=== PATIENT | male | born 1990 | race African-American/Black ===

== ENCOUNTER 2016-04-30 16:59 | Emergency (ER) | payer SELFPAY ==
[2016-04-30 17:12] VITALS: BP 138/79; PULSE 96; RESP 16; TEMP 98.8; O2SAT 95
--- NOTE | 2016-04-30 17:18 | EDPHY ---
H & P Smoking Status: Current every day smoker Time Seen by Provider: 04/30/16 17:05 HPI/ROS: CHIEF COMPLAINT: methamphetamine abuse HISTORY OF PRESENT ILLNESS: 25-year-old homeless male presents to the emergency department feeling very anxious after using methamphetamines. The patient states he last smoked methamphetamines yesterday. He developed cramping sensation in his left foot and felt like he was having difficulty walking. This is now completely resolved. He denies pain in his chest or difficulty breathing. Denies headache. Denies any reported trauma. REVIEW OF SYSTEMS: Constitutional: No fever, no chills. Eyes: No double or blurry vision. ENT: No sore throat. Respiratory: No cough, no shortness of breath. Cardiac: No chest pain. Gastrointestinal: No abdominal pain, vomiting or diarrhea. Genitourinary: No dysuria. Musculoskeletal: No neck or back pain. Skin: No rashes. Neurological: No headache. (RandallIvone Reginald) Past Medical/Surgical History: Methamphetamine abuse, anxiety, depression (RandallIvone) Social History: Homeless (Indira Pereirarina Reginald) Physical Exam: General Appearance: Alert, no distress. Normal gait. Eyes: Pupils equal and round. Extraocular motions are all intact. ENT: Mouth: Mucous membranes moist. Respiratory: No wheezing, rhonchi, or rales, lungs are clear to auscultation. Cardiovascular: Regular rate and rhythm. Gastrointestinal: Abdomen is soft and nontender, no masses, no rebound or guarding, bowel sounds normal. Neurological: Alert and oriented x 3, cranial nerves II through XII grossly intact Skin: Warm and dry, no rashes. Musculoskeletal: Nontender to palpate along the cervical, thoracic or lumbar spine. Neck is supple. Extremities: Full range of motion and no peripheral edema. Psychiatric: Patient is oriented X 3, there is no agitation. (Ivone Pereira) Constitutional: Initial Vital Signs Temperature (C) 37.1 C 04/30/16 17:09 Heart Rate 96 04/30/16 17:09 Respiratory Rate 16 04/30/16 17:09 Blood Pressure 138/79 H 04/30/16 17:09 O2 Sat (%) 95 04/30/16 17:09 O2 Delivery Mode Room Air Allergies/Adverse Reactions: No Known Allergies Allergy (Unverified 04/30/16 17:09) Home Medications: Medication Instructions Recorded NK [No Known Home Meds] 04/30/16 Medical Decision Making ED Course/Re-evaluation: 25-year-old homeless male presents feeling anxious after using methamphetamines yesterday. The patient was also concerned because he developed cramping sensation in his left foot. He has a normal examination. He ambulates unassisted. He will be discharged to the [facility] for his methamphetamine abuse. The patient would like to become sober from this drug. ( Ivone Pereira) I did not see this patient while he was in the emergency department. However his care was discussed with the PA while the patient was in the department. I agree with treatment plan and management (Nasim Keith) Differential Diagnosis: Including but not limited to hypoglycemia, infectious process, electrolyte abnormality, head injury and intoxicants. (Ivone Pereira) Departure - Departure Disposition: Home, Routine, Self-Care Clinical Impression: Methamphetamine abuse Condition: Good Instructions: Methamphetamine (By mouth) Additional Instructions: You should stop using methamphetamine. Go to the addiction recovery Center to help with your substance abuse. Referrals: [facility] [Outside] - As per Instructions
== END 2016-04-30 17:38 | disposition home or self-care (01) ==
DX: F15.10 Other stimulant abuse, uncomplicated (principal); F17.200 Nicotine dependence, unspecified, uncomplicated